=== PATIENT | male | born 1995 | race Caucasian/White ===

== ENCOUNTER → 2017-06-15 | Outpatient (REF) | payer OTHER | LOC: M LAB REF 16:21 | DX: J31.2 Chronic pharyngitis (principal) | CPT/HCPCS: 87081 ==

== ENCOUNTER 2017-06-24 10:01 | Day surgery (SDC) | payer BC, OTHER ==
[2017-06-24] MEDS ORDERED: LIDOCAINE 2% INJ 100 MG/5 ML SDV (FOR ANES.) As Ordered (10:08)
[2017-06-24] MEDS ORDERED: PROPOFOL 200 MG/20 ML VIAL As Ordered (10:08)
[2017-06-24] MEDS ORDERED: ROCURONIUM BROMIDE 50 MG/5 ML VIAL As Ordered (10:08)
[2017-06-24] MEDS ORDERED: MIDAZOLAM INJ 2 MG/2 ML VIAL (J2250) As Ordered (10:09)
[2017-06-24] MEDS ORDERED: fentaNYL 250 MCG/5 ML INJECTION (J3010) As Ordered (10:09)
[2017-06-24] MEDS: LR 1,000 ML IV ×2 (11:10→12:44)
[2017-06-24] MEDS: LIDOCAINE 1% SDV INJ 30 ML VIAL As Ordered (12:11)
[2017-06-24] MEDS: BUPIVACAINE HCL 0.25% 30 ML VIAL As Ordered (12:11)
[2017-06-24] MEDS ORDERED: KETOROLAC 30 MG/ML VIAL (J1885) As Ordered (12:54)
[2017-06-24] MEDS ORDERED: fentaNYL 100 MCG/2 ML INJECTION (J3010) As Ordered (12:54)
[2017-06-24] MEDS: fentaNYL 100 MCG/2 ML INJECTION (J3010) IV ×2 (12:55→13:15)
[2017-06-24] MEDS: KETOROLAC 30 MG/ML VIAL (J1885) IV (12:55)
[2017-06-24] MEDS: PERCOCET 5MG/325MG TAB PO ×2 (12:59→13:28)
[2017-06-24] MEDS ORDERED: ONDANSETRON 4MG/2ML VIAL (J2405) IV ×2 (13:00)
[2017-06-24] MEDS ORDERED: METOCLOPRAMIDE INJ 10MG/2ML VIAL (J2765) IV (13:00)
[2017-06-24] MEDS ORDERED: MEPERIDINE INJ 25 MG/ML VIAL (J2175) IV (13:00)
[2017-06-24] MEDS ORDERED: NORCO, ANEXSIA 5/325MG TABLET (HYDROcodone/ACETAMINOPHEN) PO ×2 (13:00)
[2017-06-24] MEDS ORDERED: NEOSTIGMINE 10 MG/10 ML VIAL (J2710) As Ordered (13:03)
[2017-06-24] MEDS ORDERED: GLYCOPYRROLATE INJ 0.2 MG/ML 2 ML VIAL As Ordered ×2 (13:03)
[2017-06-24] MEDS ORDERED: ONDANSETRON 4MG/2ML VIAL (J2405) As Ordered (13:04)
== END 2017-06-24 17:29 | disposition home or self-care (01) ==
LOC: M SDC 10:01
DX: K42.9 Umbilical hernia without obstruction or gangrene (principal)
CPT/HCPCS: 49652